=== PATIENT | male | born 1945 | race Caucasian/White ===

== ENCOUNTER 2016-05-09 12:30 | Emergency (ER) | payer MEDICARE ==
[~2016-05-09] VITALS: Ht 177.8 cm; Wt 71.0 kg
[~2016-05-09 12:30] MED LIST: PRIL20CA PO
[2016-05-09 12:33] VITALS: BP 188/84; PULSE 81; RESP 15; TEMP 98.2; O2SAT 98
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
== END 2016-05-09 15:44 | disposition home or self-care (01) ==
LOC: NEPB 12:30
DX: S01.81XD Laceration without foreign body of other part of head, subsequent encounter (principal); E78.00 Pure hypercholesterolemia, unspecified; I25.2 Old myocardial infarction; F10.10 Alcohol abuse, uncomplicated; Z48.02 Encounter for removal of sutures; W19.XXXD Unspecified fall, subsequent encounter
CPT/HCPCS: 99281